=== PATIENT | female | born 1960 | race Caucasian/White ===

== ENCOUNTER 2021-08-08 18:06 | Emergency (ER) | payer OTHER ==
[2021-08-08] MEDS ORDERED: HYDROmorphone 1 MG/ML CARPUJECT IVP STA (18:49)
--- NOTE | 2021-08-08 18:52 | ED Physician Documentation ---
History of Present Illness - Stated complaint Stated Complaint: FALL W/ MULTIPLE COMPLAINTS - Chief complaint Chief Complaint: Trauma Hd/Nk - Additonal information Additional information: Was [id number] female into the ER from home after a fall from a ladder from approximately 5 feet. The latter was leaning against a wall began to fall out from under her. She fell forward striking her face on the wall then fell backwards striking her head. She believes that she lost consciousness but is unsure of how long. She presents with nasal bruising and mild epistaxis. Also reporting right elbow pain right chest wall pain. She is not anticoagulated. Past medical history most significant for a tremor. Medication: Primidone SOC: pt drinks 3-4X weekly, usually 3-4 glasses wine each time Review of Systems Constitutional: denies: Fever, Chills Eyes: denies: Loss of vision Ears: reports: Tinnitus/ringing Nose: reports: Epistaxis Throat: reports: Reviewed and negative Cardiac: reports: Chest pain / pressure (right chest wall) Respiratory: reports: Reviewed and negative GI: reports: Abdominal Pain. denies: Nausea, Vomiting : reports: Reviewed and negative Skin: reports: Abrasion (s) Musculoskeletal: reports: Neck pain, Back pain Neurologic: reports: Headache, Head injury, LOC. denies: Confused, Altered m ental status Psychiatric: reports: Reviewed and negative PD PAST MEDICAL HISTORY - Allergies Allergies/Adverse Reactions: Allergies Allergy/AdvReac Type Severity Reaction Status Date / Time No Known Drug Allergies Allergy Verified 08/08/21 18:21 PD ED PE EXPANDED - General General: Alert, No acute distress - HEENT HEENT: PERRL, EOMI, Right nares epsitaxis, Left nares epistaxis, Dentition n ormal, Other (Superficial abrasion across the bridge of her nose. Bridge of nose ecchymotic and swollen. Generalized tenderness.). No: Atraumatic, Right frontal sinus TTP, Left frontal sinus TTP, Right maxillary sinus TTP, Left maxillary sinus TTP, Dental trauma (No trismus. No midface asymmetry or crepitus.) - Neck Neck: Supple w/out meningeal sx, No tenderness. No: Soft tissue TTP, Limited ROM - Cardiac Cardiac: Regular Rate, Radial strong equal, Pedal strong equal, Cap refill < 2 sec - Respiratory Respiratory: Clear to ausultation yoel, Other (Tenderness to the right lower lateral rib wall. No obvious ecchymosis or crepitus.). No: Distress, Labored - Abdomen Abdomen: Normal Bowel sounds, Tender to palpation - Back Back: No: Vertebral tenderness, Soft tissue tenderness - Derm Derm: Normal color, Warm and dry, Abrasion (s) (Abrasion on the right medial forearm) - Extremities Extremities: Normal, Right forearm (Ecchymosis right medial forearm. Normal flexion extension of the wrist and elbow.) - Neuro Neuro: Alert and Oriented X 3, CNII-XII intact, Normal gait, Normal finger nose, Normal speech - GCS Eye Opening: Spontaneous Motor: Obeys Commands Verbal: Oriented Total: 15 Results - Vitals Vitals: Vital Signs - 24 hr 08/08/21 08/08/21 18:11 20:30 Temperature 36.5 C Heart Rate 66 Respiratory 16 16 Rate Blood Pressure 120/75 123/88 H O2 Saturation 96 94 Oxygen O2 Source Room air - Labs Labs: Laboratory Tests 08/08/21 08/08/21 08/08/21 19:29 20:05 20:05 WBC 9.6 RBC 4.56 Hgb 15.4 Hct 45.7 MCV 100.2 H MCH 33.8 H MCHC 33.7 RDW 11.9 L Plt Count 146 MPV 12.4 H Neut # (Auto) 7.9 H Lymph # (Auto) 1.0 L Nash # (Auto) 0.6 Eos # (Auto) 0.1 Baso # (Auto) 0.1 Absolute Nucleated RBC 0.00 Nucleated RBC % 0.0 Sodium 136 Potassium 4.0 Chloride 100 L Carbon Dioxide 23 Anion Gap 13.0 BUN 17 Creatinine 0.7 Estimated GFR (MDRD) 85 L Glucose 121 H Calcium 9.0 Total Bilirubin 1.4 H AST 261 H ALT 276 H Alkaline Phosphatase 127 H Total Protein 7.4 Albumin 4.8 Globulin 2.6 Albumin/Globulin Ratio 1.8 Lipase 41 Ethyl Alcohol < 5.0 - Rads (name of study) CXR Radiology: Final report received (No acute cardiopulmonary abnormality) Right forearm xr Radiology: Final report received (No acute osseous abnormality) CT abd/pelvis Radiology: Final report received (No acute traumatic injury identified. No free fluid. Hepatic steatosis) max fac CT Radiology: Final report received (Nasal bone fracture) C spine Radiology: Final report received (No acute osseous abnormality) Chest CT Radiology: Final report received (No acute traumatic injury to chest demonstrated. Mild atelectasis) CT head Radiology: Final report received (No acute intracranial abnormality.) PD MEDICAL DECISION MAKING - ED course Complexity details: reviewed results, re-evaluated patient, considered differential, d/w patient ED course: 61-year-old female comes to the emergency department for evaluation of facial trauma and right-sided chest pain after a fall from a ladder of approximately 5 feet. She fell forward initially striking her face on the wall then backwards onto her head. She does believe she lost consciousness but is unsure of how long. She was driven to the hospital by her . On presentation she was ambulatory without assistance. She did have obvious ecchymosis and bruising to the nose with some mild epistaxis. There was bruising to the right forearm. She presented with no obvious focal neuro deficits very fluid speech. No tenderness was elicited of the cervical thoracic or lumbar spine. Screening labs showed no significant anemia. Her chemistry panel however did have some LFT abnormalities and a mild T bili elevation. She was rather tender on her right lower wall rib cage thus raising the possible concern for liver fracture or laceration. She did receive CT of the head max face neck and chest. There was only findings of a nasal bone fracture no other fractures were identified. The CT of the abdomen demonstrated hepatic steatosis but no concerning findings for biliary obstruction or gallbladder inflammation. I did discuss the LFT abnormalities with the patient. She reports that recently her labs have been drawn but she was not told that she had any abnormal findings. She is a moderate drinker however. We discussed that hepatic steatosis is typically a precursor to cirrhosis and it was important that she have very close follow-up with her primary care provider. Patient did have some nausea in the emergency department following the Dilaudid administration but this corrected following Zofran. Patient is discharged home in stable condition. Emergent return precautions otherwise discussed. Departure - Departure Disposition: Home, Self Care Clinical Impression: Hepatic steatosis, Elevated LFTs Fall from ladder Qualifiers: Encounter type: initial encounter Qualified Code(s): W11.XXXA - Fall on and fro m ladder, initial encounter Nasal bone fracture Qualifiers: Encounter type: initial encounter Fracture type: closed Qualified Code(s): S02.2XXA - Fracture of nasal bones, initial encounter for closed fracture Condition: Stable Record reviewed to determine appropriate education?: Yes Instructions: NAFLD, Fx Nose About Ch Follow-Up: Provider,Other [Primary Care Provider] - Comments: You were seen in the emergency department today after a fall from a ladder. We did do a CT of your head, Face, cervical spine chest and abdomen and pelvis. The only traumatic injury identified was a solitary nasal bone fracture. There are no fractures of your spine ribs or chest. There is no traumatic injury to your intra-abdominal organs. Your screening labs do show some elevated liver function tests. The CT scan did not show any concerns for biliary system obstruction or gallbladder Inflammation. The CT scan however does confirm hepatic steatosis which is the usual findings seen with early liver disease due to Western diet or alcohol use. Hepatic steatosis can lead to cirrhosis. It is important that you follow-up with your primary care provider for evaluation of your liver function tests in the next 1 to 2 weeks. If at any point you have jaundice or yellowing of your skin, uncontrolled vomiting then please return immediately to the ER.
[2021-08-08] MEDS ORDERED: IOVERSOL 320 100 ML VIAL IVP ONE ×2 (18:54→21:14)
--- NOTE | 2021-08-08 19:19 | XRAY Report ---
PROCEDURE: Chest 1 View X-Ray INDICATIONS: chest pain TECHNIQUE: One view of the chest was acquired. COMPARISON: None available at this time. FINDINGS: Surgical changes and devices: The sternal clips. Lungs and pleura: No pleural effusions or pneumothorax. Lungs are clear. Mediastinum: Mediastinal contours appear normal. Heart size is normal. Bones and chest wall: No suspicious bony lesions. Overlying soft tissues appear unremarkable. IMPRESSION: No acute cardiopulmonary abnormality. Reviewed by: Braydon Dobson MD on 08/08/2021 7:17 PM PDT Approved by: Braydon Dobson MD on 08/08/2021 7:17 PM PDT Station ID: [id number]
--- NOTE | 2021-08-08 19:30 | XRAY Report ---
PROCEDURE: Forearm RT INDICATIONS: bruising from ladder TECHNIQUE: 2 views of the forearm were acquired. COMPARISON: None. FINDINGS: Bones: No fractures or dislocations. No suspicious bony lesions. Soft tissues: No suspicious soft tissue calcifications or masses. IMPRESSION: No acute osseous abnormality. Reviewed by: Braydon Dobson MD on 08/08/2021 7:29 PM PDT Approved by: Braydon Dobson MD on 08/08/2021 7:29 PM PDT Station ID: [id number]
[2021-08-08 19:38] LABS: BASOPHILS # (AUTO) 0.1 10^3/uL (0.0-0.1); BASOPHILS % (AUTO) 0.5 %; EOSINOPHILS # (AUTO) 0.1 10^3/uL (0.0-0.7); EOSINOPHILS % (AUTO) 0.8 %; HCT - HEMATOCRIT 45.7 % (37.0-47.0); HGB - HEMOGLOBIN 15.4 g/dL (12.0-16.0); LYMPHOCYTES % (AUTO) 10.4 %; MEAN CORPUSCULAR HEMOGLOBIN 33.8 pg (27.0-31.0); MEAN CORPUSCULAR HGB CONC 33.7 g/dL (32.0-36.0); MEAN CORPUSCULAR VOLUME 100.2 fL (81.0-99.0); MEAN PLATELET VOLUME 12.4 fL (7.9-10.8); MONOCYTES # (AUTO) 0.6 10^3/uL (0.0-1.0); MONOCYTES % (AUTO) 6.1 %; NEUTROPHILS # (AUTO) 7.9 10^3/uL (1.5-6.6); NEUTROPHILS % (AUTO) 81.8 %; PLT - PLATELET COUNT 146 10^3/uL (130-450); RED BLOOD COUNT 4.56 10^6/uL (4.20-5.40); RED CELL DISTRIBUTION WIDTH 11.9 % (12.0-15.0); WHITE BLOOD COUNT 9.6 x10^3/uL (4.8-10.8)
[2021-08-08 20:22] LABS: ALBUMIN 4.8 g/dL (3.2-5.5); ALBUMIN/GLOBULIN RATIO 1.8 (1.0-2.2); BILIRUBIN,TOTAL 1.4 mg/dL (0.2-1.0); CREATININE 0.7 mg/dL (0.4-1.0); TOTAL PROTEIN 7.4 g/dL (6.7-8.2)
[2021-08-08] MEDS ORDERED: ONDANSETRON 4 MG/2 ML VIAL IVP STA ×2 (20:32→22:18)
[2021-08-08] MEDS ORDERED: ONDANSETRON 4 MG/2 ML VIAL ONE (20:38)
--- NOTE | 2021-08-08 21:39 | CT Report ---
PROCEDURE: HEAD WO INDICATIONS: fall from ladder with LOC TECHNIQUE: Noncontrast 4.5 mm thick angled axial sections acquired from the foramen magnum to the vertex. For r adiation dose reduction, the following was used: automated exposure control, adjustment of mA and/or kV according to patient size. COMPARISON: None. FINDINGS: Image quality: Excellent. CSF spaces: Basal cisterns are patent. No extra-axial fluid collections. Ventricles are normal in size and shape. Brain: No midline shift. No intracranial masses or hemorrhage. Lyles-white matter interface is norm al. Skull and face: Calvarium and visualized facial bones are intact, without suspicious lesions. Sinuses: Visualized sinuses and mastoids are clear. IMPRESSION: No acute intracranial abnormality. Reviewed by: Braydon Dobson MD on 08/08/2021 9:37 PM PDT Approved by: Braydon Dobson MD on 08/08/2021 9:37 PM PDT Station ID: [id number]
--- NOTE | 2021-08-08 21:40 | CT Report ---
PROCEDURE: CERVICAL SPINE WO INDICATIONS: fall from ladder, neck pain TECHNIQUE: Noncontrast 3 mm thick sections acquired from the skull base to the T4 level. Sagittal and coronal r eformats were then constructed. For radiation dose reduction, the following was used: automated exp osure control, adjustment of mA and/or kV according to patient size. COMPARISON: None. FINDINGS: Image quality: Excellent. Bones: No fractures or dislocations. Mild degenerative change in the cervical spine. Visualized supe rior ribs are intact. Soft tissues: Prevertebral soft tissues are normal in thickness. No paravertebral hematomas. No ap ical pneumothoraces. IMPRESSION: No acute osseous abnormality. Reviewed by: Braydon Dobson MD on 08/08/2021 9:39 PM PDT Approved by: Braydon Dobson MD on 08/08/2021 9:39 PM PDT Station ID: [id number]
--- NOTE | 2021-08-08 21:46 | CT Report ---
PROCEDURE: CHEST W INDICATIONS: fall from ladder ? rib fx CONTRAST: IV CONTRAST: Optiray 320 ml: 100 PO CONTRAST: *NO PO CONTRAST TECHNIQUE: After the administration of intravenous contrast, 1 mm axial images were acquired from the pulmonary apices through the posterior costophrenic angles. Axial 5 mm soft tissue kernel reconstructions were performed as well as 8 mm axial MIP and coronal and sagittal 5 mm reformations. For radiation dose reduction, the following was used: automated exposure control, adjustment of mA and/or kV according to patient size. COMPARISON: Same day CT abdomen and pelvis. FINDINGS: Image quality: Excellent. Lungs and pleura: No acute air space opacities. Mild atelectasis. No pleural effusions or pneumotho rax. Central and peripheral airways are patent and normal in caliber. Mediastinum: Heart size is normal. No pericardial effusion. No mediastinal or hilar adenopathy by size criteria. Thoracic aorta and central pulmonary arteries are normal in size. Esophagus is shawn l in caliber. No hiatal hernia. Bones and chest wall: No suspicious bony lesions. No vertebral body compression fractures. No axil brandon or supraclavicular adenopathy by size criteria. Anterior chest wall clips. The thyroid is normal in size and there are no incidental findings. Abdomen: Hepatic steatosis. Visualized upper abdominal solid organs appear normal. Upper abdominal b owel loops are normal in caliber. IMPRESSION: No acute traumatic injury chest demonstrated. Mild atelectasis. Reviewed by: Braydon Dobson MD on 08/08/2021 9:44 PM PDT Approved by: Braydon Dobson MD on 08/08/2021 9:44 PM PDT Station ID: [id number]
--- NOTE | 2021-08-08 21:51 | CT Report ---
PROCEDURE: Abdomen/Pelvis W INDICATIONS: right flank, lower rib trauma; fall from ladder CONTRAST: IV CONTRAST: Optiray 320 ml: 100 PO CONTRAST: *NO PO CONTRAST TECHNIQUE: After the administration of intravenous contrast, 5 mm thick sections acquired from the diaphragms to the symphysis. 5 mm thick coronal and sagittal reformats were acquired. For radiation dose reducti on, the following was used: automated exposure control, adjustment of mA and/or kV according to preet ent size. COMPARISON: Same day CT chest. FINDINGS: Image quality: Excellent. ABDOMEN: Lung bases: Lung bases are clear. Heart size is normal. Solid organs: Liver and spleen are normal in size. Hepatic steatosis. Gallbladder is unremarkable B iliary system is non dilated. Pancreas enhances normally. No adrenal nodules. Kidneys demonstrate normal size and enhancement, without hydronephrosis. Peritoneum and bowel: Bowel loops demonstrate normal wall thickness and caliber. Normal appendix. N o free fluid or air. Nodes and vessels: No retroperitoneal or mesenteric adenopathy by size criteria. Aorta and inferior vena cava are normal in size. Miscellaneous: No ventral hernias. Ventral abdominal wall clips. PELVIS: Genitourinary: Bladder wall thickness is normal. Unremarkable uterus. Miscellaneous: No inguinal hernias or adenopathy. Bones: No suspicious bony lesions. Mild DDD. No vertebral body compression fractures. IMPRESSION: 1. No acute traumatic injury identified. No free fluid. 2. Hepatic steatosis. Reviewed by: Braydon Dobson MD on 08/08/2021 9:50 PM PDT Approved by: Braydon Dobson MD on 08/08/2021 9:50 PM PDT Station ID: [id number]
--- NOTE | 2021-08-08 21:55 | CT Report ---
PROCEDURE: MAXILLOFACIAL WO INDICATIONS: fall from ladder TECHNIQUE: Noncontrast 1.5 mm thick axial images acquired from the mandible through the frontal sinuses, with co meño and sagittal reformatting. For radiation dose reduction, the following was used: automated ex posure control, adjustment of mA and/or kV according to patient size. COMPARISON: Same day noncontrast head CT. FINDINGS: Image quality: Excellent. Bones and teeth: Orbital david are intact. Left nasal bone fracture, (). Significant displaceme nt. Small amount of adjacent subcutaneous gas. Visualized portions of the mandible demonstrate no fra ctures or subluxation. Zygomatic arches are intact. Pterygoid plates are intact. Visualized portio ns of the skull base and auditory canals are intact. Sinuses: Paranasal sinuses are aerated, without fluid levels, mucosal thickening, or mucoceles. Mas toid air cells are aerated. Soft tissues: No edema, masses, or fluid collections. No enlarged lymph nodes. No soft tissue lace rations or debris. Vascular: Visualized vascular structures appear normal in the absence of contrast. Bony vascular fo ramina and canals are intact. IMPRESSION: Nasal bone fracture with suspected laceration. Reviewed by: Braydon Dobson MD on 08/08/2021 9:54 PM PDT Approved by: Braydon Dobson MD on 08/08/2021 9:54 PM PDT Station ID: [id number]
[2021-08-08 22:32] VITALS: BP 120/66
== END 2021-08-08 22:54 | disposition home or self-care (01) ==
LOC: ED 18:06
DX: S02.2XXA Fracture of nasal bones, initial encounter for closed fracture (principal); S50.811A Abrasion of right forearm, initial encounter; W11.XXXA Fall on and from ladder, initial encounter; Y92.009 Unspecified place in unspecified non-institutional (private) residence as the place of occurrence of the external cause; R94.5 Abnormal results of liver function studies; K76.0 Fatty (change of) liver, not elsewhere classified
CPT/HCPCS: 36415; 70450; 70486; 71045; 71260; 72125; 73090; 74177; 80053; 80320; 83690; 85025; 96374; 96375; 96376; 99283; 99284; J1170; Q9967; 85610

== ENCOUNTER 2023-09-10 12:27 | Outpatient (CLI) | payer OTHER | END 2023-09-10 12:28 | disposition critical access hospital (66) | LOC: EMS 12:27 | DX: R55 Syncope and collapse (principal); R11.2 Nausea with vomiting, unspecified; R19.7 Diarrhea, unspecified; S00.81XA Abrasion of other part of head, initial encounter; W18.11XA Fall from or off toilet without subsequent striking against object, initial encounter; Y92.002 Bathroom of unspecified non-institutional (private) residence as the place of occurrence of the external cause | CPT/HCPCS: A0425; A0427 ==

== ENCOUNTER 2023-09-10 12:53 | Emergency (ER) | payer OTHER ==
[2023-09-10] MEDS ORDERED: SODIUM CHLORIDE 0.9% 1,000 ML IV STA (13:12)
[2023-09-10] MEDS ORDERED: diphenhydrAMINE INJ 50 MG/ML VIAL IVP STA (13:12)
[2023-09-10] MEDS ORDERED: DROPERIDOL 5 MG/2 ML VIAL IVP STA (13:12)
[2023-09-10 13:27] LABS: BASOPHILS % (AUTO) 0.7 %; EOSINOPHILS # (AUTO) 0.1 10^3/uL (0.0-0.7); EOSINOPHILS % (AUTO) 3.4 %; HCT - HEMATOCRIT 42.2 % (37.0-47.0); HGB - HEMOGLOBIN 14.2 g/dL (12.0-16.0); LYMPHOCYTES # (AUTO) 1.2 10^3/uL (1.5-3.5); LYMPHOCYTES % (AUTO) 27.6 %; MEAN CORPUSCULAR HEMOGLOBIN 32.3 pg (27.0-31.0); MEAN CORPUSCULAR HGB CONC 33.6 g/dL (32.0-36.0); MEAN CORPUSCULAR VOLUME 96.1 fL (81.0-99.0); MEAN PLATELET VOLUME 11.5 fL (7.9-10.8); MONOCYTES # (AUTO) 0.3 10^3/uL (0.0-1.0); MONOCYTES % (AUTO) 7.5 %; NEUTROPHILS # (AUTO) 2.5 10^3/uL (1.5-6.6); NEUTROPHILS % (AUTO) 60.3 %; PLT - PLATELET COUNT 130 10^3/uL (130-450); RED BLOOD COUNT 4.39 10^6/uL (4.20-5.40); RED CELL DISTRIBUTION WIDTH 11.9 % (12.0-15.0); WHITE BLOOD COUNT 4.2 x10^3/uL (4.8-10.8)
[2023-09-10 13:43] LABS: ALBUMIN 4.1 g/dL (3.2-5.5); ALBUMIN/GLOBULIN RATIO 2.3 (1.0-2.2); BILIRUBIN,TOTAL 1.2 mg/dL (0.2-1.0); CALCIUM 8.9 mg/dL (8.5-10.3); CREATININE 0.8 mg/dL (0.6-1.3); POTASSIUM 4.3 mmol/L (3.5-4.5); TOTAL PROTEIN 5.9 g/dL (6.4-8.9)
--- NOTE | 2023-09-10 14:43 | XRAY Report ---
PROCEDURE: Wrist 3 View LT INDICATIONS: wrist pain after fall TECHNIQUE: 3 views of the wrist were acquired. COMPARISON: None. FINDINGS: Bones: No fractures or dislocations. No suspicious bony lesions. Soft tissues: No suspicious soft tissue calcifications or masses. IMPRESSION: No acute bony abnormality. Reviewed by: Joel Gomes on 09/10/2023 1:42 PM [facility] Approved by: Joel Gomes on 09/10/2023 1:42 PM [facility] Station ID: [id number]
--- NOTE | 2023-09-10 14:54 | ED Physician Documentation ---
History of Present Illness - Stated complaint Stated Complaint: SYNCOPE - Chief complaint Chief Complaint: Neuro - History obtained from History obtained from: Patient, EMS - Additonal information Additional information: The patient is brought to the emergency department for chief complaint of syncopal episode while on the toilet. The patient has had nausea and diarrhea and went to have another episode of diarrhea when she suddenly felt faint. She ended up falling forward off of the toilet and hitting her face on the wall. She has a lip laceration on her lower lip and also complains of some left wrist pain. She states she just feels lightheaded. No chest pain or shortness of breath. No headache. No neck pain. No other complaints at this time. PD PAST MEDICAL HISTORY - Past Medical History Past Medical History: Yes - Past Surgical History Past Surgical History: No - Present Medications Home Medications: Ambulatory Orders Medication Instructions Recorded Confirmed HYDROcod/ACETAM 5/325 [[place] 5/325] 1 - 2 tablet PO Q6H PRN #5 tablet 09/10/23 Ondansetron Odt [Zofran] 4 mg TL Q6H PRN #10 tablet 09/10/23 - Allergies Allergies/Adverse Reactions: Allergies Allergy/AdvReac Type Severity Reaction Status Date / Time No Known Drug Allergies Allergy Verified 09/10/23 12:55 - Social History Does the pt smoke?: No Smoking Status: Never smoker Does the pt drink ETOH?: No Does the pt have substance abuse?: No - Immunizations Immunizations are current?: Yes PD ED PE NORMAL - Vitals Vital signs reviewed: Yes - General General: No acute distress, Well developed/nourished, Other (The patient is awake and appropriate. She lays in bed with her eyes closed but does respond readily when spoken to.) - HEENT HEENT: PERRL, EOMI, Moist mucous membranes, Dentition benign, Other (1.5 cm laceration to midline lower lip mucosa, extending to the very edge of the skin. Wound not through and through. No dental fracture. Bleeding controlled.) - Neck Neck: Supple, no meningeal sign, No bony TTP - Cardiac Cardiac: RRR, No murmur - Respiratory Respiratory: No respiratory distress, Clear bilaterally - Abdomen Abdomen: Soft, Non tender, Non distended - Derm Derm: Normal color, Warm and dry, No rash - Extremities Extremities: No deformity, No edema, Other (Mild global tenderness of left wrist without edema or deformity.) - Neuro Neuro: Alert and oriented X 3 - Psych Psych: Normal mood, Normal affect Results - Vitals Vitals: Oxygen O2 Source Room air - EKG (time done) 1322 EKG releavant findings:: EKG personally interpreted by author of this note. Relevant findings are: Rate: Rate (enter#) (58) Rhythm: NSR [place]: Normal Intervals: Normal ME QRS: Normal Ischemia: Normal ST segments Compare to prior EKG: Old EKG unavailable Computer interpretation: Agree with computer - Labs Labs: Laboratory Tests 09/10/23 09/10/23 13:23 13:23 WBC 4.2 L RBC 4.39 Hgb 14.2 Hct 42.2 MCV 96.1 MCH 32.3 H MCHC 33.6 RDW 11.9 L Plt Count 130 MPV 11.5 H Neut # (Auto) 2.5 Lymph # (Auto) 1.2 L [place] # (Auto) 0.3 Eos # (Auto) 0.1 Baso # (Auto) 0.0 Absolute Nucleated RBC 0.00 Nucleated RBC % 0.0 Sodium 138 Potassium 4.3 Chloride 108 Carbon Dioxide 24 Anion Gap 6.0 BUN 15 Creatinine 0.8 Estimated GFR (MDRD) 72 L Glucose 157 H Calcium 8.9 Total Bilirubin 1.2 H AST 27 ALT 46 Alkaline Phosphatase 92 Total Protein 5.9 L Albumin 4.1 Globulin 1.8 L Albumin/Globulin Ratio 2.3 H Lipase 37 - Rads (name of study) Left wrist x-ray series Relevant Findings:: Final report received, See rad report (Negative) Procedures - Laceration (location) lower lip Length in cm: 1.5 Wound type: Linear, Into subcut fat (Involves only the very edge of skin with remainder of laceration and mucous membrane.), Clean Neurovascular status: Sensory intact, Motor intact, Vascular intact Anesthesia: Lidocaine 1% Wound preparation: Wound explored, To the base Skin layer closure: Interrupted, Size #-0 - enter number (5.0), Sutures - enter # (3), Other (Coated Vicryl) Other: Patient tolerated well, No complications, Neurovascular intact, Tetanus UTD PD Medical Decision Making - ED course Complexity details: reviewed results, re-evaluated patient, considered differential, d/w patient, d/w family ED course: The patient was worked up with laboratory studies which were overall unremarkable. Her lip laceration was repaired as above. The patient was given a liter of 0.9 normal saline and was found to be feeling better afterward. Her wrist x-ray was unremarkable. I discussed with the patient and her wound care and also, symptomatic management at home for her gastroenteritis. We have discussed the importance of hydration to prevent further syncopal episodes. We have discussed the usual indications for return. Departure - Departure Disposition: Home, Self Care Clinical Impression: Gastroenteritis Syncope Qualifiers: Syncope type: unspecified Qualified Code(s): R55 - Syncope and collapse Lip laceration Qualifiers: Encounter type: initial encounter Qualified Code(s): S01.511A - Laceration without foreign body of lip, initial encounter Condition: Stable Instructions: ED Dehydration, ED Laceration Mouth, ED Syncope Vasovagal, ED Gastroenteritis Viral Prescriptions: HYDROcod/ACETAM 5/325 [[place] 5/325] 1 - 2 tablet PO Q6H PRN #5 tablet PRN Reason: Pain Ondansetron Odt [Zofran] 4 mg TL Q6H PRN #10 tablet PRN Reason: Nausea / Vomiting Comments: Your laboratory studies overall look good, as does your EKG. Your wrist x-ray is negative. You have some minor injuries to your face which mostly are too small to need repair. The lip laceration has been closed with 3 absorbable sutures. These should be left in place for 1 week. If you wish, you may leave them in indefinitely until they dissolve on their own. However, after a week you may also have them removed by medical professional. As far as your gastrointestinal symptoms, it is most likely that you have one of the many viral illnesses that are going around at this time. It is possible that the symptoms could be related to the food you ate, though given the amount of time in the past before symptoms started this is less likely. Whatever the case, either way the symptoms are expected to resolve on their own, given time. Usually, these sorts of illnesses last at their worst for a couple of days, then begin to subside. You should stick with clear liquids to give your stomach a break from trying to digest anything. You may take nausea medication 30 to 60 minutes before attempting to take any fluid, and then take just very small sips or couple of ice chips. If after 20 or 30 minutes you have been able to keep the water down, you may take another couple of sips or couple of ice chips. If you are able to tolerate this every 20 minutes or so, and then you may begin to gradually bring the sips and chips closer together and increase volumes as tolerated. If tomorrow your stomach is feeling better and you have been able to tolerate clear liquids for 24 hours, you may reintroduce simple starches such as saltine crackers or Ramen noodles when you are ready. Prescriptions for pain and nausea medication have been electronically transmitted to the [facility] pharmacy in [place], which is open today. Forms: PCP List Discharge Date/Time: 09/10/23 15:15
[2023-09-10 15:22] VITALS: BP 114/72; O2SAT 100
== END 2023-09-10 15:15 | disposition home or self-care (01) ==
LOC: EDUNIT# → ED 12:53
DX: S01.511A Laceration without foreign body of lip, initial encounter (principal); W18.12XA Fall from or off toilet with subsequent striking against object, initial encounter; Y92.002 Bathroom of unspecified non-institutional (private) residence as the place of occurrence of the external cause; K52.9 Noninfective gastroenteritis and colitis, unspecified
CPT/HCPCS: 12011; 36415; 73110; 80053; 83690; 85025; 93005; 96374; 96375; 99284; J1200